=== PATIENT | female | born 1970 | race Caucasian/White ===

== ENCOUNTER 2019-07-07 10:20 | Day surgery (SDC) | payer OTHER ==
[~2019-07-07] VITALS: Ht 149.9 cm; Wt 58.2 kg
[2019-07-07] VITALS (12 sets, daily range): BP systolic 134–167; BP diastolic 80–104; PULSE 84–106; RESP 12–22; Ht 149.9 cm; Wt 58.2 kg
[~2019-07-07 10:20] MED LIST: CEFAZOLIN 2 GM/50 ML (PMX) 50 ML IVPB ONE; SOD CHLORIDE 0.9% 1,000 ML IV ONE
[2019-07-07] MEDS ORDERED: BUPIVACAINE 0.25%/EPI (SDV) 10 ML INJ ONE (12:17)
[2019-07-07] MEDS ORDERED: MIDAZOLAM 1 MG/ML 2 ML INJ ONE (12:19)
[2019-07-07] MEDS ORDERED: SEVOFLURANE 15 MIN ONE (12:19)
[2019-07-07] MEDS ORDERED: FENTAnyl 50 MCG/ML VIAL ONE (12:19)
[2019-07-07] MEDS ORDERED: CEFAZOLIN 1 GM INJ ONE (13:20)
[2019-07-07] MEDS ORDERED: LIDOCAINE 2% (SDV) 5 ML INJ ONE (13:20)
[2019-07-07] MEDS ORDERED: PROPOFOL 20 ML ONE (13:20)
[2019-07-07] MEDS ORDERED: ONDANSETRON 4 MG INJ ONE (13:21)
[2019-07-07] MEDS ORDERED: HYDROCODONE/APAP (5/325) TAB PO PRN (13:30)
[2019-07-07] MEDS ORDERED: IBUPROFEN 600 MG TAB PO PRN (13:30)
[2019-07-07] MEDS ORDERED: KETOROLAC 30 MG INJ IV PRN ×2 (13:30→14:00)
[2019-07-07] MEDS ORDERED: ONDANSETRON 4 MG INJ IV PRN ×2 (13:30→14:00)
[2019-07-07] MEDS ORDERED: HYDROmorphONE 1 MG/5 ML IV SYRINGE IV PRN ×2 (14:00)
[2019-07-07] MEDS ORDERED: hydrALAzine 20 MG INJ IV PRN (14:00)
[2019-07-07] MEDS ORDERED: METOCLOPRAMIDE 10 MG INJ IV PRN (14:00)
[2019-07-07] MEDS ORDERED: OXYCODONE/ACETAMINOPHEN (5/325) TAB PO PRN (14:00)
[2019-07-07] MEDS ORDERED: LABETALOL HCL 20MG INJ IV PRN (14:00)
[2019-07-07] MEDS ORDERED: MEPERIDINE 25 MG INJ IV PRN (14:00)
[2019-07-07] MEDS ORDERED: FENTAnyl 50 MCG/ML VIAL IV PRN (14:00)
[2019-07-07] MEDS ORDERED: DIPHENHYDRAMINE 50 MG INJ IV PRN (14:00)
== END 2019-07-07 15:40 | disposition home or self-care (01) ==
LOC: SDS 10:20
PROVIDERS: ATTEND Surgery
DX: D17.1 Benign lipomatous neoplasm of skin and subcutaneous tissue of trunk (principal); I10 Essential (primary) hypertension; E66.9 Obesity, unspecified; Z68.25 Body mass index [BMI] 25.0-25.9, adult
CPT/HCPCS: 22901; 84703; 88307; J0690; J1885; J2250; J2405; J3010; Z7512; Z7610